=== PATIENT | male | born 1970 | race Caucasian/White ===

== ENCOUNTER → 2016-11-27 | Day surgery (SDC) | payer BC ==
--- NOTE | 2016-11-22 19:44 | HP ---
HISTORY AND PHYSICAL: DATE OF ADMISSION: 11/27/16 PRIMARY CARE PHYSICIAN: Helder Casillas MD (DICTATED BY CARYN CAZARES NP) CHIEF COMPLAINT: Cracked teeth, painful teeth. HISTORY OF PRESENT ILLNESS: This 46-year-old white male who is scheduled with Dr. Nelson Lei at [facility] on 11/27/16 for a full mouth extraction of his teeth. PAST MEDICAL HISTORY: The patient is under the care of Dr. Helder Casillas. He does have a history of depression, insomnia, asthma in childhood. He has had a cervical disk herniation in the distant past and does have a known left inguinal hernia. PAST SURGICAL HISTORY: No surgeries in the past. CURRENT MEDICATIONS: 1. Wellbutrin XL 300 mg daily. 2. Citalopram 40 mg daily. 3. Trazodone 100 mg 1-1/2 tablets at bedtime p.r.n. insomnia. 4. He also takes a multiple vitamin. ALLERGIES: Questionable allergy to PENICILLIN in childhood. Otherwise, no known drug allergies. FAMILY HISTORY: Father - CVA, seizure disorder. Mother is healthy. Paternal grandfather - DVT and [place]. Paternal grandmother - colon cancer. Maternal grandfather - COPD, [place] late in life. Maternal grandmother - COPD. SOCIAL HISTORY: The patient does live alone. He works at a [employer] for [employer]. He currently is smoking half a pack of cigarettes a day. Has been a heavier smoker at times, but plans on quitting in preparation for his surgery. He denies any alcohol or street drugs, quit 6 months ago. REVIEW OF SYSTEMS: The patient does wear glasses. He has decreased hearing in his right ear. He has some chronic left shoulder discomfort. Otherwise, review of systems is negative to detailed questioning. Specifically, he denies any dyspnea, cough, chest pain, palpitations, or edema symptoms. PHYSICAL EXAMINATION GENERAL: This 46-year-old white male is alert, pleasant, and cooperative. VITAL SIGNS: Height 5 feet 9 inches, weight stable at 175. Blood pressure supine 106/64, pulse 76. HEENT: Eyes: Pupils round, react to light. Ears: Canals normal. TMs normal. No erythema. No fluid. Mouth: Tongue in the midline. Many teeth are missing, few are broken and decayed. Pharynx is clear. NECK: Supple. Good range of motion. No adenopathy. Thyroid benign. BACK: Normal curvature. No tenderness noted of spine or CVA areas. SKIN: Warm, dry, pale, pink. No worrisome lesions noted. LUNGS: Clear. HEART: Rhythm is regular. Apical pulse 76 beats per minute. EKG: Normal sinus rhythm, within normal limits. ABDOMEN: Flat. Active bowel sounds. Abdomen is soft, nontender. No obvious masses or organomegaly. EXTREMITIES: He ambulates independently. No edema. No cyanosis. Skin in good condition. IMPRESSION: The patient is medically stable and cleared for full [place] [facility] Bayron Lei. CARYN CAZARES NP CC: Helder Casillas MD; Bayron Lei MD; Same Day Surgery Unit at the hospital * [id number]/CPS #: [id number] MTDD
[~2016-11-27] MED LIST: Buffered Lidocaine 1% SYR 3ML* 3 ML/SYR SYRINGE INTRADERM ONE; Buffered Lidocaine 1% SYR 3ML* 3 ML/SYR SYRINGE ONE; Bupivacaine 0.5% W/EPI SDV* 30 ML VIAL ONE; Chlorhexidine MW 0.12% 473ML* STOCK BOTTLE * USE UNIT DOSE ONE; Clindamycin 900 MG IVPREMIX(* 900 MG/50 ML SDV IV ONE; Collagen Hemostat* 1 SPONGE/70Mm X 35Mm ONE; Dexamethasone IV* 4 MG/ML 1 ML (4 MG) ONE; DiMENhydriNATE IV* 50 MG/ML VIAL IV PUSH PRN; Gelfoam Sponge SIZE 100* SPONGE ONE; HYDROcodone/ACETAMIN 5-325 MG* 1 TAB ONE; Lidocaine 2% MPF* 2 ML VIAL ONE; Midazolam* 1 MG/ML 2 ML VIAL (2 MG) ONE; Oxymetazoline 0.05% NASAL SPR* 15 ML BTL ONE; Propofol* 10 MG/ML 20 ML BTL IV PUSH ONE; Sodium Citrate/Citric Acid* 15 ML UDC ONE; Sodium Citrate/Citric Acid* 15 ML UDC PO ONE; Succinylcholine* 20 MG/ML 10 ML VIAL ONE; fentaNYL* 50 MCG/ML 2 ML VIAL (100 MCG VIAL) ONE
[2016-11-27] MEDS: fentaNYL* 50 MCG/ML 2 ML VIAL (100 MCG VIAL) IV PRN ×4 (09:53→11:07)
[2016-11-27 11:56] VITALS: BP 133/83
--- NOTE | 2016-11-27 17:34 | OP ---
DATE OF OPERATION: 11/27/16 [facility] DATE OF : 74 SURGEON: Nelson Lei MD, DMD ANESTHESIOLOGIST: Gumaro Patino DO ANESTHESIA: General anesthesia with oral endotracheal intubation. PRE-OP DIAGNOSIS: Nonrestorable dentition. POST-OP DIAGNOSIS: Nonrestorable dentition. OPERATIVE PROCEDURE: Surgical removal of all remaining teeth and alveoplasty, teeth numbers are 2, 3, 6, 7, 8, 9, 10, 11, 12, 13, 19, 21, 22, 23, 24, 25, 26, and 30. INDICATIONS: The patient is a 46-year-old male with the above-noted diagnosis who wants to have his remaining nonrestorable, painful, and occasionally infected teeth removed to be prepared for denture fabrication in the future. I discussed with him full range of treatment options, alternatives, advantages, and disadvantages of each, and potential risks and complications, he indicates he understands and wished to proceed. DESCRIPTION OF PROCEDURE: The patient was brought to the operating suite, placed under general anesthesia with an oral endotracheal intubation, prepped and draped in a standard fashion for an oral and maxillofacial surgical procedure. [place] protocol time-out procedure was completed. Attention was directed intraorally where a total of 10 mL of 0.5% Marcaine with 1:200,000 epinephrine was infiltrated around the maxillary and mandibular vestibules, palate, lingual blocks, and bilateral mandibular blocks. After allowing for local anesthesia and hemostasis, and placement of a throat pack, attention was directed to the maxillary arch, where a 15-blade was used to make crestal and interdental incisions and a #9 elevator was used for mucoperiosteal flap elevation. Elevators, rotating handpiece, and forceps were used for removal of the maxillary teeth. Rongeur was used for alveoloplasty. After thorough irrigation, Gelfoam was placed and closure was accomplished in a running and interrupted fashion with 4-0 Vicryl suture. Attention was then directed to the mandibular arch where the same procedure was performed. With all of the teeth removed, an alveoloplasty was performed. Throat pack was removed. The oropharynx was suctioned. The patient was allowed to awaken from anesthesia, was extubated, and transported to postanesthesia care unit, alert, awake, and stable with no bleeding. All sponge and needle counts, and sharps counts were correct at the completion of the procedure before leaving the operating room. Estimated blood loss for the procedure was approximately 30 cc. It should be noted that there was some broken and nonfunctioning instrumentation noted on the tray and a backup tray was needed so that the procedure could be completed. [id number]/[facility] #: [id number] MTDD
== END | disposition home or self-care (01) ==
LOC: OR 06:10
PROVIDERS: ATTEND Oral & Maxillofacial Surgery
DX: K02.9 Dental caries, unspecified (principal); F17.210 Nicotine dependence, cigarettes, uncomplicated
CPT/HCPCS: 88300; A9270-GY; J0330; J1100; J2250; J2704; J3010

== ENCOUNTER → 2017-04-27 12:28 | Emergency (ER) | payer OTHER ==
[~2017-04-27 12:28] MED LIST changes: -Buffered Lidocaine 1% SYR 3ML* 3 ML/SYR SYRINGE INTRADERM ONE; -Buffered Lidocaine 1% SYR 3ML* 3 ML/SYR SYRINGE ONE; -Bupivacaine 0.5% W/EPI SDV* 30 ML VIAL ONE; -Chlorhexidine MW 0.12% 473ML* STOCK BOTTLE * USE UNIT DOSE ONE; -Clindamycin 900 MG IVPREMIX(* 900 MG/50 ML SDV IV ONE; -Collagen Hemostat* 1 SPONGE/70Mm X 35Mm ONE; -Dexamethasone IV* 4 MG/ML 1 ML (4 MG) ONE; -DiMENhydriNATE IV* 50 MG/ML VIAL IV PUSH PRN; -Gelfoam Sponge SIZE 100* SPONGE ONE; -HYDROcodone/ACETAMIN 5-325 MG* 1 TAB ONE; -Lidocaine 2% MPF* 2 ML VIAL ONE; -Midazolam* 1 MG/ML 2 ML VIAL (2 MG) ONE; +NS 0.9% 1000 ML* 1,000 ML IV ONE; -Oxymetazoline 0.05% NASAL SPR* 15 ML BTL ONE; -Propofol* 10 MG/ML 20 ML BTL IV PUSH ONE; -Sodium Citrate/Citric Acid* 15 ML UDC ONE; -Sodium Citrate/Citric Acid* 15 ML UDC PO ONE; -Succinylcholine* 20 MG/ML 10 ML VIAL ONE; +Sulfamethox/Trimethoprim DS 800/160* TAB PO ONE; -fentaNYL* 50 MCG/ML 2 ML VIAL (100 MCG VIAL) ONE
--- NOTE | 2017-04-27 13:42 | RAD ---
INDICATION: Right-sided flank pain. COMPARISON: There are no prior studies available for comparison. TECHNIQUE: A CT scan of the abdomen and pelvis was performed without intravenous or oral contrast. Contiguous axial sections were obtained from the lung bases through the symphysis pubis. Images were reconstructed in the coronal and sagittal planes. FINDINGS: The lung bases are clear. No pleural effusion is present. The liver and spleen are within normal limits in size without significant focal abnormality on this noncontrast study. No calcified gallstones are seen. The pancreas appears to be within normal limits in size. The adrenal glands and kidneys are normal in size. No renal calculi or hydronephrosis is seen. No ureteral or bladder calculi are seen. The prostate gland appears mildly enlarged with a couple areas of calcification. The aorta is normal in caliber. There is mild calcific plaque present. No significant enlarged retroperitoneal lymph nodes are seen. The stomach, small and large bowel appear nondistended. There is a round 8 mm density present within the stomach most consistent with a pill. The appendix appears to be within normal limits. There is no evidence for diverticulitis or colitis. There is a small periumbilical hernia containing fat. No free intraperitoneal air or fluid is seen. No significant focal osseous abnormality is seen. IMPRESSION: NO EVIDENCE FOR ACUTE FINDING OR CAUSE FOR THE PATIENT'S ABDOMINAL PAIN IS SEEN.
[2017-04-27 13:48] LABS: Urine Bacteria Absent (Absent); Urine Bilirubin Negative (Negative); Urine Glucose Negative (Negative); Urine Nitrite Negative (Negative)
[2017-04-27 13:55] LABS: Hematocrit 45 % (42-52); Hemoglobin 14.9 g/dl (14.0-18.0); Mean Corpuscular HGB Conc 34 g/dl (31-36); Mean Corpuscular Hemoglobin 30 pg (27-31); Mean Corpuscular Volume 90 fL (80-94); Mean Platelet Volume 8 um3 (7.4-10.4); Red Blood Count 4.94 10^6/ul (4.0-5.4); Red Cell Distribution Width 14 % (10.5-15); White Blood Count 10.4 10^3/ul (3.5-10.8)
[2017-04-27 14:11] LABS: C Reactive Protein 1.12 mg/L (< 5.00); Calcium 9.6 mg/dL (8.6-10.3); EGFR African American 104.4 (>60); EGFR Non-African American 81.2 (>60); Potassium 3.6 mmol/L (3.5-5.0); Total Bilirubin 0.7 mg/dL (0.2-1.0)
[2017-04-27 16:04] VITALS: BP 133/77
--- NOTE | 2017-04-28 17:06 | ED ---
Charles Mac Rebecca, scribed for Dane Sy MD on 04/27/17 at 1257 . Abdominal Pain/Male - HPI Summary HPI Summary: Pt is a 46 y/o M who presents to ED c/o R flank pain. Pain began gradually 2 days ago (early Sunday morning) and has been constant since onset, waxing and waning in intensity. Pain is discrete to the R flank and is not present anywhere else in the abdomen. Currently pain is 2/10, at its worst it is 6/10 and is characterized as muscular pain. Sx aggravated and alleviated by nothing. Additionally c/o hematuria since early Sunday morning, N/V and chills ( resolved). Denies testicular pain. No PMHx kidney stones. - History of Current Complaint Chief Complaint: EDFlankPain Stated Complaint: RIGHT SIDE PAIN Time Seen by Provider: 04/27/17 12:45 Hx Obtained From: Patient Onset/Duration: Gradual Onset, Lasting Days - 2 days, Still Present Timing: Constant Severity Initially: Moderate Severity Currently: Mild Pain Intensity: 2 Pain Scale Used: 0-10 Numeric Location: Flank - R flank Radiates: No Character: Other: - Muscular pain Aggravating Factor(s): Nothing Alleviating Factor(s): Nothing Associated Signs And Symptoms: Positive: Urinary Symptoms - hematuria, Nausea, Vomiting, Other - Chills (resolved) - Allergies/Home Medications Allergies/Adverse Reactions: Allergies Allergy/AdvReac Type Severity Reaction Status Date / Time No Known Allergies Allergy Verified 11/27/16 06:46 PMH/Surg Hx/FS Hx/Imm Hx Endocrine/Hematology History: Denies: Hx Diabetes Respiratory History: Reports: Hx Asthma - A CHILD, NONE DURING ADULTHOOD History: Denies: Hx Kidney Stones Sensory History: Reports: Hx Contacts or Glasses - GLASSES Denies: Hx Hearing Aid Opthamlomology History: Reports: Hx Contacts or Glasses - GLASSES Psychiatric History: Reports: Hx Anxiety - CONTROL WITH MEDS, Hx Depression - CONTROL WITH MEDS Denies: Hx of Violent Episodes Against Others Infectious Disease History: No Infectious Disease History: Denies: Traveled Outside the [place] in Last 30 Days - Family History Known Family History: Positive: Cardiac Disease - Social History Alcohol Use: Occasionally Substance Use Type: Reports: Other Substance Use Comment - Amount & Last Used: AEROSAL INHALANTS Smoking Status (MU): Heavy Every Day Tobacco Smoker Type: Cigarettes Amount Used/How Often: <THAN 10 CIGARETTES PER DAY Length of Time of Smoking/Using Tobacco: 30 YEARS Have You Smoked in the Last Year: Yes Review of Systems Positive: Chills - resolved Positive: Vomiting, Nausea Positive: flank pain - R-sided flank pain, hematuria, other - Denies testicular pain All Other Systems Reviewed And Are Negative: Yes Physical Exam - Summary Physical Exam Summary: VITAL SIGNS: Reviewed. GENERAL: Patient is a well-developed and nourished male who is lying comfortable in the stretcher. ~Patient is not in any acute respiratory distress. HEAD AND FACE: Normocephalic and atraumatic. EYES: PERRLA, EOMI x 2, No injected conjunctiva. EARS: Hearing grossly intact. Ear canals and tympanic membranes are WNL. MOUTH: Oropharynx within normal limits. NECK: Supple, trachea is midline, no adenopathy, no JVD. CHEST: Symmetric, no tenderness at palpation LUNGS: Clear to auscultation bilaterally. No wheezing or crackles. CVS: RRR, S1 and S2 present, no murmurs or gallops appreciated. ABDOMEN: Soft, non-tender. No signs of distention. Positive bowel sounds. No rebound no guarding, and no masses palpated. No abdominal bruit or pulsations. EXTREMITIES: FROM in all major joints, no edema, no cyanosis or clubbing. NEURO: Alert and oriented x 3. No acute neurological deficits. Speech is normal. SKIN: Dry and warm Triage Information Reviewed: Yes Vital Signs On Initial Exam: Initial Vitals Temp Pulse Resp BP Pulse Ox 97.9 F 103 20 149/96 99 04/27/17 12:30 04/27/17 12:30 04/27/17 12:30 04/27/17 12:30 04/27/17 12:30 Vital Signs Reviewed: Yes Diagnostics - Vital Signs Vital Signs Temp Pulse Resp BP Pulse Ox 04/27/17 12:33 97.9 F 110 20 149/96 99 04/27/17 12:30 97.9 F 103 20 149/96 99 - Laboratory Lab Results: Lab Results 04/27/17 04/27/17 04/27/17 Range/Units 12:55 13:40 13:40 WBC 10.4 (3.5-10.8) 10^3/ul RBC 4.94 (4.0-5.4) 10^6/ul Hgb 14.9 (14.0-18.0) g/dl Hct 45 (42-52) % MCV 90 (80-94) fL MCH 30 (27-31) pg MCHC 34 (31-36) g/dl RDW 14 (10.5-15) % Plt Count 286 (150-450) 10^3/ul MPV 8 (7.4-10.4) um3 Neut % (Auto) 51.8 (38-83) % Lymph % (Auto) 32.9 (25-47) % [place] % (Auto) 8.0 (1-9) % Eos % (Auto) 6.7 H (0-6) % Baso % (Auto) 0.6 (0-2) % Absolute Neuts (auto) 5.4 (1.5-7.7) 10^3/ul Absolute Lymphs (auto) 3.4 (1.0-4.8) 10^3/ul Absolute Monos (auto) 0.8 (0-0.8) 10^3/ul Absolute Eos (auto) 0.7 H (0-0.6) 10^3/ul Absolute Basos (auto) 0.1 (0-0.2) 10^3/ul Absolute Nucleated RBC 0.01 10^3/ul Nucleated RBC % 0.1 Sodium 139 (133-145) mmol/L Potassium 3.6 (3.5-5.0) mmol/L Chloride 106 (101-111) mmol/L Carbon Dioxide 28 (22-32) mmol/L Anion Gap 5 (2-11) mmol/L BUN 11 (6-24) mg/dL Creatinine 1.00 (0.67-1.17) mg/dL Est GFR ( Amer) 104.4 (>60) Est GFR (Non-Af Amer) 81.2 (>60) BUN/Creatinine Ratio 11.0 (8-20) Glucose 92 (70-100) mg/dL Lactic Acid (0.5-2.0) mmol/L Calcium 9.6 (8.6-10.3) mg/dL Total Bilirubin 0.70 (0.2-1.0) mg/dL AST 19 (13-39) U/L ALT 28 (7-52) U/L Alkaline Phosphatase 100 (34-104) U/L C-Reactive Protein 1.12 (< 5.00) mg/L Total Protein 7.0 (6.4-8.9) g/dL Albumin 4.0 (3.2-5.2) g/dL Globulin 3.0 (2-4) g/dL Albumin/Globulin Ratio 1.3 (1-3) Lipase 27 (11.0-82.0) U/L Urine Color Yellow Urine Appearance Clear Urine pH 5.0 (5-9) Ur Specific [place] 1.017 (1.010-1.030) Urine Protein Negative (Negative) Urine Ketones Negative (Negative) Urine Blood 1+ H (Negative) Urine Nitrate Negative (Negative) Urine Bilirubin Negative (Negative) Urine Urobilinogen Negative (Negative) Ur Leukocyte Esterase 3+ H (Negative) Urine WBC (Auto) 3+(>20/hpf) H (Absent) Urine RBC (Auto) 1+(3-5/hpf) H (Absent) Urine Bacteria Absent (Absent) Hyaline Casts Present H (Absent) Urine Glucose Negative (Negative) 04/27/17 Range/Units 13:40 WBC (3.5-10.8) 10^3/ul RBC (4.0-5.4) 10^6/ul Hgb (14.0-18.0) g/dl Hct (42-52) % MCV (80-94) fL MCH (27-31) pg MCHC (31-36) g/dl RDW (10.5-15) % Plt Count (150-450) 10^3/ul MPV (7.4-10.4) um3 Neut % (Auto) (38-83) % Lymph % (Auto) (25-47) % [place] % (Auto) (1-9) % Eos % (Auto) (0-6) % Baso % (Auto) (0-2) % Absolute Neuts (auto) (1.5-7.7) 10^3/ul Absolute Lymphs (auto) (1.0-4.8) 10^3/ul Absolute Monos (auto) (0-0.8) 10^3/ul Absolute Eos (auto) (0-0.6) 10^3/ul Absolute Basos (auto) (0-0.2) 10^3/ul Absolute Nucleated RBC 10^3/ul Nucleated RBC % Sodium (133-145) mmol/L Potassium (3.5-5.0) mmol/L Chloride (101-111) mmol/L Carbon Dioxide (22-32) mmol/L Anion Gap (2-11) mmol/L BUN (6-24) mg/dL Creatinine (0.67-1.17) mg/dL Est GFR ( Amer) (>60) Est GFR (Non-Af Amer) (>60) BUN/Creatinine Ratio (8-20) Glucose (70-100) mg/dL Lactic Acid 0.7 (0.5-2.0) mmol/L Calcium (8.6-10.3) mg/dL Total Bilirubin (0.2-1.0) mg/dL AST (13-39) U/L ALT (7-52) U/L Alkaline Phosphatase (34-104) U/L C-Reactive Protein (< 5.00) mg/L Total Protein (6.4-8.9) g/dL Albumin (3.2-5.2) g/dL Globulin (2-4) g/dL Albumin/Globulin Ratio (1-3) Lipase (11.0-82.0) U/L Urine Color Urine Appearance Urine pH (5-9) Ur Specific [place] (1.010-1.030) Urine Protein (Negative) Urine Ketones (Negative) Urine Blood (Negative) Urine Nitrate (Negative) Urine Bilirubin (Negative) Urine Urobilinogen (Negative) Ur Leukocyte Esterase (Negative) Urine WBC (Auto) (Absent) Urine RBC (Auto) (Absent) Urine Bacteria (Absent) Hyaline Casts (Absent) Urine Glucose (Negative) Result Diagrams: 04/27/17 13:40 04/27/17 13:40 Lab Statement: Any lab studies that have been ordered have been reviewed, and results considered in the medical decision making process. - CT Abd/Pel CT CT Interpretation: No Acute Changes - NO EVIDENCE FOR ACUTE FINDING OR CAUSE FOR THE PATIENT'S ABDOMINAL PAIN IS SEEN. CT Interpretation Completed By: Radiologist Abdominal Pain Fem Course/Dx - Course Assessment/Plan: Pt is a 46 y/o M who presents to ED c/o R flank pain. Pain began gradually 2 days ago (early Sunday morning) and has been constant since onset, waxing and waning in intensity. Pain is discrete to the R flank and is not present anywhere else in the abdomen. Currently pain is 2/10, at its worst it is 6/10 and is characterized as muscular pain. Sx aggravated and alleviated by nothing. Additionally c/o hematuria since early Sunday morning , N/V and chills (resolved). Denies testicular pain. No PMHx kidney stones. Test results WNL except for the urine which shows a UTI. The patient was given Bactrim and also hydrated. He reports pain 0/10, therefore he was not given any pain meds. I also disclosed the findings and test results with the patient and the need to f/u with PCP. I also sent a GC/chlamydia and he will follow up with PCP for results of GC/chlamydia. He is hemodynamically stable and A&Ox3. - Diagnoses Differential Diagnosis/HQI/PQRI: Constipation, Renal Colic, Ureteral Stone, Urinary Tract Infection Provider Diagnoses: UTI (urinary tract infection) Discharge - Discharge Plan Condition: Stable Disposition: HOME Prescriptions: Sulfamethox/Trimethoprim DS* [Bactrim DS 800/160 TAB*] 1 tab PO BID #9 tab Patient Education Materials: Urinary Tract Infection in Men (ED) Referrals: Helder Casillas MD [Primary Care Provider] - 3 Days The documentation as recorded by the Charles pichardo Rebecca accurately reflects the service I personally performed and the decisions made by , Dane Sy MD.
== END | disposition home or self-care (01) ==
LOC: ED 12:28
DX: N39.0 Urinary tract infection, site not specified (principal); R10.84 Generalized abdominal pain; R31.9 Hematuria, unspecified; R11.2 Nausea with vomiting, unspecified; F17.210 Nicotine dependence, cigarettes, uncomplicated
CPT/HCPCS: 36415; 74176; 80053; 81003; 81015; 83605; 83690; 85025; 86140; 87086; 87491; 87591; 99283; A9270-GY

== ENCOUNTER 2019-08-18 17:05 | Emergency (ER) | payer OTHER ==
[2019-08-18 17:35] VITALS: BP 145/98
[2019-08-18] MEDS ORDERED: Tetan/Diph/Pertus SYR(Tdap)* 0.5 ML SYR(BOOSTRIX) use SYR contains LATEX IM ONE (17:38)
--- NOTE | 2019-08-18 17:40 | UC ---
Bite Injury/Animal HPI - HPI Summary HPI Summary: Patient is a 48yo male presenting with cat bite to right index finger after trying to rescue the cat from a dumpster at work today. Patient is unsure if the cat belongs to the fabricator special items of the dumpster, but states he is "not worried about rabies." He was sent here by his boss. Patient notes the bite bled but quickly stopped. Denies pain. Denies drainage. Denies redness. Denies decreased ROM and sensation. Denies fever, chills, n/v. Patient is not up to date on his tetanus. - History of Current Complaint Chief Complaint: UCBiteInjury Stated Complaint: CAT BITE Hx Obtained From: Patient Severity Currently: None Pain Intensity: 0 Pain Scale Used: 0-10 Numeric - Allergies/Home Medications Allergies/Adverse Reactions: Allergies Allergy/AdvReac Type Severity Reaction Status Date / Time bee venom protein (honey bee) Allergy Anaphylatic Verified 08/18/19 17:30 Shock PMH/Surg Hx/FS Hx/Imm Hx Previously Healthy: Yes - Surgical History Surgical History: Yes Surgery Procedure, Year, and Place: Dental - Family History Known Family History: Positive: Cardiac Disease - Social History Alcohol Use: Occasionally Alcohol Amount: ETOH ABUSE SEE NURSING NOTE Substance Use Type: None Substance Use Comment - Amount & Last Used: AEROSAL INHALANTS Smoking Status (MU): Heavy Every Day Tobacco Smoker Type: Cigarettes Amount Used/How Often: <THAN 10 CIGARETTES PER DAY Length of Time of Smoking/Using Tobacco: 30 YEARS Have You Smoked in the Last Year: Yes Household Exposure Type: Cigarettes - Immunization History Most Recent Tetanus Shot: unsure Review of Systems All Other Systems Reviewed And Are Negative: Yes Constitutional: Positive: Negative. Negative: Fever, Chills Skin: Positive: Other - cat bite to right index finger Respiratory: Positive: Negative Cardiovascular: Positive: Negative Gastrointestinal: Positive: Negative Musculoskeletal: Positive: Negative. Negative: Arthralgia, Decreased ROM, Edema , Myalgia Neurological: Positive: Negative. Negative: Paresthesia, Numbness Physical Exam Triage Information Reviewed: Yes Appearance: Well-Appearing, No Pain Distress, Well-Nourished Vital Signs: Initial Vital Signs Temp 99.5 F 08/18/19 17:30 Pulse 78 08/18/19 17:30 Resp 18 08/18/19 17:30 BP 145/98 08/18/19 17:30 Pulse Ox 99 08/18/19 17:30 Eyes: Positive: Conjunctiva Clear ENT: Positive: Hearing grossly normal Respiratory: Positive: No respiratory distress Cardiovascular: Positive: Pulses Normal, Brisk Capillary Refill Musculoskeletal Exam: Normal Musculoskeletal: Positive: Strength Intact, ROM Intact, No Edema, Other: - no tenderness to palpation of right index finger Neurological Exam: Other - sensation grossly intact Skin Exam: Normal - two small nonbleeding puncture wounds to palmar surface of PIP of right index finger. no erythema or drainage noted Bite Injury Course/Dx - Course Course Of Treatment: Health Department does not advise treating with rabies prophylaxis at this time. They are going to first look for the cat. Patient received tetanus shot here. He also received Augementin for prophylactic treatment of infection. Patient given one dose for morning as well until he can waste picker the prescription. Instructed him to return or go to ED if symptoms worsen. Patient voiced understanding and agreed to the treatment plan. - Differential Dx/Diagnosis Provider Diagnosis: Cat bite of finger Discharge ED - Sign-Out/Discharge Documenting (check all that apply): Patient Departure All imaging exams completed and their final reports reviewed: No Studies - Discharge Plan Condition: Stable Disposition: HOME Prescriptions: Amoxicillin/Clavulanate TAB* [Augmentin TAB 875*] 875 mg PO BID #8 tab Patient Education Materials: Animal Bite (ED) Referrals: [facility] [Outside] - If Needed [facility] [place] [facility] REFERRAL [Outside] - If Needed Additional Instructions: As discussed, take Augmentin as prescribed to prevent infection of your cat bite. Keep the bite clean and dry. You received a tetanus booster today. It is normal to experience soreness where your booster was given. The Health Department does not recommend treatment for rabies at this moment. They are going to look for the cat first. Call if you hear anything further from the possible fabricator special items of the cat. Go to the emergency room if you experience fever, increasing redness and warmth to the area, drainage, difficulty moving your finger, or nausea and vomiting. - Billing Disposition and Condition Condition: STABLE Disposition: Home - Attestation Statements Provider Attestation: Per institutional requirements, I have reviewed the chart, however, I was not consulted specifically or made aware of this patient by the midlevel provider. I did not personally evaluate, interact with , or disposition this patient.
[2019-08-18] MEDS ORDERED: Amoxicillin/Clavulanate TAB* 875 MG PO ONE ×2 (17:47→17:50)
== END 2019-08-18 18:11 | disposition home or self-care (01) ==
LOC: UCEAST 17:05
DX: S61.250A Open bite of right index finger without damage to nail, initial encounter (principal); F17.210 Nicotine dependence, cigarettes, uncomplicated; Z23 Encounter for immunization; Z91.030 Bee allergy status; W55.01XA Bitten by cat, initial encounter; Y92.89 Other specified places as the place of occurrence of the external cause
CPT/HCPCS: 90471; 90715; 99212; A9270-GY; G0463